=== PATIENT | male | born 1970 | race Caucasian/White ===

== ENCOUNTER 2021-01-11 07:11 | Day surgery (SDC) | payer BC, OTHER ==
[2021-01-11] MEDS ORDERED: Propofol 200 MG/20 ML SDV ONE ×4 (07:20→08:03)
[2021-01-11] MEDS ORDERED: fentaNYL 100 MCG/2 ML SDV ONE (07:20)
--- NOTE | 2021-01-11 07:31 | PCM.PREANE ---
Preanesthetic Assessment - Anesthesia/Transfusion/Family Hx Anesthesia History: Prior Anesthesia Without Reaction Transfusion History: No Prior Transfusion(s) - Review of Systems General: No Symptoms Pulmonary: No Symptoms, Shortness of Breath, Wheezing, Cough Cardiovascular: No Symptoms, Other (hypertension) Gastrointestinal: No Symptoms Neurological: No Symptoms Other: Reports: None - Physical Assessment NPO Status Date: 01/11/21 NPO Status Time: 00:00 Vital Signs: Last Vital Signs Temp 97.3 F 01/11/21 07:22 Pulse 90 01/11/21 07:22 Resp 16 01/11/21 07:22 BP 145/90 H 01/11/21 07:22 Pulse Ox 95 01/11/21 07:22 Height: 6 ft 2 in Weight: 376 lb ASA Class: 3 Mental Status: Alert & Oriented x3 Airway Class: Mallampati = 3 Dentition: Reports: Normal Dentition Thyro-Mental Finger Breadths: 3 Mouth Opening Finger Breadths: 3 ROM/Head Extension: Full Lungs: Clear to Auscultation, Normal Respiratory Effort Cardiovascular: Regular Rate, Regular Rhythm - Allergies Allergies/Adverse Reactions: Allergies Allergy/AdvReac Type Severity Reaction Status Date / Time No Known Allergies Allergy Verified 01/07/21 08:08 - Acknowledgements Anesthesia Type Planned: General Anesthesia Pt an Appropriate Candidate for the Planned Anesthesia: Yes Alternatives and Risks of Anesthesia Discussed w Pt/Guardian: Yes Pt/Guardian Understands and Agrees with Anesthesia Plan: Yes PreAnesthesia Questionnaire HEENT History: Reports: None Cardiovascular History: Reports: High Cholesterol, Hypertension Respiratory History: Reports: None Gastrointestinal History: Reports: None Genitourinary History: Reports: None Musculoskeletal History: Reports: Fracture Neurological History: Reports: None Psychiatric History: Reports: None Endocrine/Metabolic History: Reports: Obesity/BMI 30+ Hematologic History: Reports: None Immunologic History: Reports: None Oncologic (Cancer) History: Reports: None Dermatologic History: Reports: None - Past Surgical History Head Surgeries/Procedures: Reports: None HEENT Surgical History: Reports: None Cardiovascular Surgical History: Reports: None Respiratory Surgical History: Reports: None GI Surgical History: Reports: None Male Surgical History: Reports: None Endocrine Surgical History: Reports: None Neurological Surgical History: Reports: None Musculoskeletal Surgical History: Reports: ORIF Other Musculoskeletal Surgeries/Procedures:: surgery for fx right arm and left ankle Oncologic Surgical History: Reports: None Dermatological Surgical History: Reports: None - SUBSTANCE USE Tobacco Use Status *Q: Current Every Day Tobacco User Tobacco Use Within Last Twelve Months: Cigarettes - HOME MEDS Home Medications: Home Meds Telmisartan 40 mg PO DAILY 01/07/21 [History] amLODIPine Besylate [Amlodipine Besylate] 10 mg PO DAILY 01/07/21 [History] atorvaSTATin [Lipitor] 20 mg PO DAILY 01/07/21 [History] - CURRENT (IN HOUSE) MEDS Current Meds: Current Medications Lactated Ringer's (Ringers, Lactated) 1,000 mls @ 125 mls/hr IV ASDIRECTED NED Discontinued Medications Fentanyl (Fentanyl 100 Mcg/2 Ml Sdv) Confirm Administered Dose 100 mcg .ROUTE .STK-MED ONE Stop: 01/11/21 07:21 Lidocaine HCl (Lidocaine 1% 5 Ml Sdv) Confirm Administered Dose 5 ml .ROUTE .STK-MED ONE Stop: 01/11/21 07:21 Propofol (Propofol 200 Mg/20 Ml Sdv) Confirm Administered Dose 400 mg .ROUTE .STK-MED ONE Stop: 01/11/21 07:21
--- NOTE | 2021-01-11 08:25 | PCM.OPNOTE ---
- General Post-Op/Procedure Note Date of Surgery/Procedure: 01/11/21 Operative Procedure(s): Colonoscopy with polypectomy Findings: Colon polyps at 75, 25, and 15cm Diverticulosis dictation number [id number] Pre Op Diagnosis: Occ blood in stool Post-Op Diagnosis: Colon polyps at 75, 25, and 15cm. Diverticulosis Anesthesia Technique: [facility] [place] Primary Surgeon: Papa Gottlieb Pathology: colon polyps Complications: None Condition: Good
--- NOTE | 2021-01-11 08:30 | PCM.POSTAN ---
POST ANESTHESIA ASSESSMENT - MENTAL STATUS Mental Status: Alert, Oriented - VITAL SIGNS Vital Signs: Last Vital Signs Temp 97.0 F 01/11/21 08:20 Pulse 77 01/11/21 08:30 Resp 17 01/11/21 08:30 BP 123/81 01/11/21 08:30 Pulse Ox 92 L 01/11/21 08:30 - RESPIRATORY Respiratory Status: Respiratory Rate WNL, Airway Patent, O2 Saturation Stable - CARDIOVASCULAR CV Status: Pulse Rate WNL, Blood Pressure Stable - GASTROINTESTINAL GI Status: No Symptoms - POST OP HYDRATION Hydration Status: Adequate & Stable
--- NOTE | 2021-01-11 08:31 | PCM48HPAN ---
Post Anesthesia Note - EVALUATION WITHIN 48HRS OF ANESTHETIC Vital Signs in Normal Range: Yes Patient Participated in Evaluation: Yes Respiratory Function Stable: Yes Airway Patent: Yes Cardiovascular Function Stable: Yes Hydration Status Stable: Yes Pain Control Satisfactory: Yes Nausea and Vomiting Control Satisfactory: Yes Mental Status Recovered: Yes Vital Signs: Last Vital Signs Temp 97.0 F 01/11/21 08:20 Pulse 77 01/11/21 08:30 Resp 17 01/11/21 08:30 BP 123/81 01/11/21 08:30 Pulse Ox 92 L 01/11/21 08:30
[2021-01-11] MEDS ORDERED: Lactated Ringers 1,000 ML IV SCH (09:15)
--- NOTE | 2021-01-11 09:56 | OR ---
SURGEON: SHARON MEDRANO MD DATE OF PROCEDURE: 01/11/2021 PREOPERATIVE DIAGNOSIS: Occasional blood in stool. POSTOPERATIVE DIAGNOSES: 1. Colon polyps at 75 cm, 25 cm, and 15 cm. 2. Diverticulosis. PROCEDURE PERFORMED: 1. Colonoscopy. 2. Hot snare polypectomy. 3. Cold biopsy polypectomy. PRIMARY SURGEON: Endoscopist: Sharon Medrano MD. ANESTHESIA: General. EXTENT OF COLONOSCOPY: To the cecum. BOWEL PREP: Very good. LIMITATIONS: None. REASON FOR PROCEDURE: The patient is a pleasant 50-year-old gentleman. He has had occasionally some blood in the stool, but it is usually after having hard bowel movements. He denies any family history of colon cancer. He denies any changes in bowel habits. PROCEDURE IN DETAIL: Physical examination was performed. The major risks and benefits associated with the procedure were explained to patient in detail. The patient verbalized understanding and agreement with the same. The patient was then connected to the appropriate monitoring device and IV was started. EKG, pulse oximetry, blood pressure, and capnography were monitored throughout the entire procedure. Continuous oxygen and sedation were provided by the anesthesiologist. The patient was placed in left lateral decubitus position. Sedation began. After adequate sedation was achieved, digital rectal exam was performed. No rectal mass or polyps felt. Now a well-lubricated Olympus colonoscope was inserted into the rectum and advanced under direct visualization to the level of the cecum. Cecum was identified by both visual and anatomic landmarks. Photographs were taken of the cecal cap. Terminal ileum was also intubated. The scope was then slowly withdrawn in somewhat circular fashion with color, texture, anatomy, and integrity of the mucosa from cecum to the anal canal. The patient did have some light liquid stool, which was suctioned and irrigated out for a great look at the mucosa. The patient did have a smaller polyp at about 5 mm that looked to be kind of at the splenic flexure/descending colon at 75 cm. This was removed with cold biopsy polypectomy, looked to be completely removed and good hemostasis. Scope was continued to be withdrawn. The patient did have a larger polyp of about 2 cm on a nice long stalk at 25 cm in the sigmoid colon. This was removed with hot snare polypectomy, and the mucosal defect was closed with a resolution clip. Scope was continued to be withdrawn. This polyp was too large to suction out, so was actually removed with the scope, and then scope was brought into the polypectomy site. Scope was continued to be withdrawn. He did have some diverticulosis throughout the sigmoid colon. He had another smaller polyp of about a centimeter in size at about 15 cm. This was also removed with hot snare polypectomy. The scope was continued to be withdrawn, retroflexed in the rectum. He did have some noninflamed internal hemorrhoids. Scope was completely removed, and the procedure was terminated. ENDOSCOPIC DIAGNOSES: 1. Multiple colon polyps at 25, and 15 cm. 2. Diverticulosis. RECOMMENDATIONS: Followup colonoscopy will depend on pathology but most likely need another one in 1 year because of the size of the polyps. LUISA / JESUS /[id number]
== END 2021-01-11 08:48 | disposition home or self-care (01) ==
LOC: MW.SDS 07:11
PROVIDERS: ATTEND Surgery
DX: D12.5 Benign neoplasm of sigmoid colon (principal); K57.30 Diverticulosis of large intestine without perforation or abscess without bleeding; K64.8 Other hemorrhoids; I10 Essential (primary) hypertension; F17.210 Nicotine dependence, cigarettes, uncomplicated; E66.9 Obesity, unspecified; Z68.42 Body mass index [BMI] 45.0-49.9, adult; Z79.899 Other long term (current) drug therapy
CPT/HCPCS: 45380; 45385; J2704; J3010; 00812